=== PATIENT | male | born 1960 | race Caucasian/White ===

== ENCOUNTER 2017-07-29 09:29 | Day surgery (SDC) | payer BC ==
[2017-07-26 14:59] VITALS: BMI 35.4
[2017-07-29] MEDS ORDERED: PROPOFOL 20 ML ONE ×3 (09:59)
[2017-07-29 11:16] VITALS: TEMP 97.6
[2017-07-29 11:48] VITALS: BP 155/94; PULSE 67
--- NOTE | 2017-07-30 11:50 | PATH ---
Surgical Pathology Report Patient Name: ELISSA BOOTH [facility]. Rec. #: [id number] /Age/Gender: 1960 (Age: 57) / M Account: [id number] Location: [facility]-ENDOSCOPY Taken: 07/29/2017 Received: 07/29/2017 Reported: 07/30/2017 Physicians: Talon Mora M.D. Specimen(s) Received A: BX DUODENUM B: BX ANTRUM Clinical History Anemia Postoperative diagnosis: Rule out celiac, gastritis Final Diagnosis A. DUODENUM, BIOPSY: DUODENAL MUCOSA WITHOUT SIGNIFICANT PATHOLOGIC FINDINGS. NO FEATURES OF CELIAC DISEASE IDENTIFIED. B. STOMACH, ANTRUM, BIOPSY: GASTRIC ANTRAL MUCOSA WITH SEVERE CHRONIC ACTIVE GASTRITIS. IMMUNOHISTOCHEMICAL STAIN FOR H. PYLORI IS POSITIVE (NUMEROUS). Electronically Signed Lashaun Moreno M.D. Gross Description A. Received in formalin, labeled "duodenum" are 2 alonzo, irregular portions of soft tissue averaging 0.4 cm. in greatest dimension. The specimens are submitted in toto in one cassette. B. Received in formalin, labeled "antrum" are 2 alonzo, irregular portions of soft tissue averaging 0.5 cm. in greatest dimension. The specimens are submitted in toto in one cassette. 07/29/201707/29/2017
== END 2017-07-29 12:14 | disposition home or self-care (01) ==
LOC: FASU-ENDO 09:29
PROVIDERS: ATTEND Internal Medicine Gastroenterology
PROC: 0DB68ZX Excision of Stomach, Via Natural or Artificial Opening Endoscopic, Diagnostic (ICD-10-PCS; 2017-07-29)
PROC: 0DJD8ZZ Inspection of Lower Intestinal Tract, Via Natural or Artificial Opening Endoscopic (ICD-10-PCS; principal; 2017-07-29 10:47)
PROC: 0DB98ZX Excision of Duodenum, Via Natural or Artificial Opening Endoscopic, Diagnostic (ICD-10-PCS; 2017-07-29 10:47)
DX: Z12.11 Encounter for screening for malignant neoplasm of colon (principal); K29.50 Unspecified chronic gastritis without bleeding; B96.81 Helicobacter pylori [H. pylori] as the cause of diseases classified elsewhere; R12 Heartburn
CPT/HCPCS: 82962; 88305-TC; 88342-TC

== ENCOUNTER 2017-08-19 09:21 | Day surgery (SDC) | payer BC ==
[2017-08-15 11:33] VITALS: BMI 34.0
[2017-08-19] MEDS ORDERED: PROPOFOL 20 ML ONE ×2 (09:48)
[2017-08-19 11:52] VITALS: TEMP 97.7
[2017-08-19 12:14] VITALS: BP 112/73; PULSE 69
== END 2017-08-19 12:40 | disposition home or self-care (01) ==
LOC: FASU-ENDO 09:21
PROVIDERS: ATTEND Internal Medicine Gastroenterology
PROC: 0DJD8ZZ Inspection of Lower Intestinal Tract, Via Natural or Artificial Opening Endoscopic (ICD-10-PCS; principal; 2017-08-19 11:27)
DX: D64.9 Anemia, unspecified (principal); K62.5 Hemorrhage of anus and rectum
CPT/HCPCS: 82962